=== PATIENT | female | born 1980 | race Caucasian/White ===

== ENCOUNTER 2018-12-12 14:07 | Outpatient (REF) | payer MEDICAID, SELFPAY ==
--- NOTE | 2018-12-12 13:30 | PAPFT_PTH ---
PATIENT: AUGUSTA STEVENS LOC: [facility] U#:[id number] AGE/SX: 38/F ROOM: RE12/12/[address]: JOAN Buenrostro : 1980 BED: DIS: 12/12/2018 SPEC #: [id number] RECD: 12/12/18 17:18 STATUS: DOMINGO REQ #: [id number] TODD: 12/12/18 13:[address]: Felicia Walker DEPT: [facility] Cytology RECD BY: Jaylin Cottrell ENTERED: 12/12/18 17:18 SP TYPE: PAPFT WHIT DR: None Tissues: 1 - CX/ENDOCX FOR PAP SMEARS Procedures: PAP THIN PREP/[facility] Screening HPV DNA PROBE Comments: [id number]
== END 2018-12-12 14:27 ==
LOC: LBN 14:07
PROVIDERS: Visit Provider Nurse Practitioner Family
DX: Z12.4 Encounter for screening for malignant neoplasm of cervix (principal); Z11.51 Encounter for screening for human papillomavirus (HPV)
CPT/HCPCS: 88142; 87624

== ENCOUNTER 2023-10-18 13:59 | Outpatient (CLI) | payer MEDICAID, SELFPAY ==
[2023-10-18 10:51] LABS: HCG Quant, Pregnancy 371 mIU/mL (1-3)
== END 2023-10-18 14:00 | disposition home or self-care (01) ==
LOC: LBO 13:59
PROVIDERS: Visit Provider Advanced Practice Midwife
DX: O20.0 Threatened abortion (principal)
CPT/HCPCS: 36415; 84702